=== PATIENT | female | born 1985 | race Caucasian/White ===

== ENCOUNTER 2020-10-23 20:09 | Emergency (ER) | payer OTHER ==
[~2020-10-23] VITALS: Ht 162.6 cm; Wt 90.0 kg
[2020-10-23] MEDS ORDERED: HYDROCODONE/ACETAMINOPHEN 5/325MG TABLET PO STA (22:37)
[2020-10-23] MEDS ORDERED: IBUP-2029 PO (23:48)
[2020-10-23] MEDS ORDERED: CYCL25PO21 PO (23:48)
[2020-10-23] MEDS ORDERED: IBUPROFEN 600MG TABLET PO STA (23:51)
[2020-10-24 00:25] VITALS: BP 122/81
== END 2020-10-24 01:01 | disposition home or self-care (01) ==
LOC: ER 20:09
DX: S00.93XA Contusion of unspecified part of head, initial encounter (principal); S80.212A Abrasion, left knee, initial encounter; M25.572 Pain in left ankle and joints of left foot; W01.0XXA Fall on same level from slipping, tripping and stumbling without subsequent striking against object, initial encounter; Y93.89 Activity, other specified; Y92.512 Supermarket, store or market as the place of occurrence of the external cause
CPT/HCPCS: 73562; 73610; 81025; 99284